=== PATIENT | male | born 1970 | race Caucasian/White ===

== ENCOUNTER 2017-09-15 10:52 | Emergency (ER) | payer MEDICAID ==
[~2017-09-15] VITALS: Ht 160 cm; Wt 76.5 kg
[2017-09-15 10:57] VITALS: Ht 160 cm; Wt 76.5 kg
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
[2017-09-15] MEDS ORDERED: IBUPROFEN 600 MG TAB PO ONE (11:30)
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
[2017-09-15] MEDS ORDERED: IBUP-1542 PO (12:26)
[2017-09-15] MEDS ORDERED: CYCL5TAB PO (12:26)
[2017-09-15 12:39] VITALS: BP 148/86; PULSE 75
== END 2017-09-15 12:40 | disposition home or self-care (01) ==
LOC: FTE 10:52
DX: S33.5XXA Sprain of ligaments of lumbar spine, initial encounter (principal); S43.401A Unspecified sprain of right shoulder joint, initial encounter; V49.40XA Driver injured in collision with unspecified motor vehicles in traffic accident, initial encounter
CPT/HCPCS: 72100; Z7502; Z7610